=== PATIENT | female | born 1995 | race African-American/Black ===

== ENCOUNTER 2019-04-25 10:20 | Emergency (ER) | payer OTHER ==
[~2019-04-25] VITALS: Ht 152.4 cm; Wt 93.4 kg
[2019-04-25 10:23] VITALS: BP 129/75
[2019-04-25] MEDS ORDERED: CITALOPRAM HBR40 MG PO (11:14)
[2019-04-25] MEDS ORDERED: SINGULAIR 10 MG10 M1 PO (11:14)
== END 2019-04-25 11:20 | disposition left against medical advice (07) ==
LOC: ER 10:20
DX: Z53.21 Procedure and treatment not carried out due to patient leaving prior to being seen by health care provider (principal)